=== PATIENT | male | born 1940 | race Caucasian/White ===

== ENCOUNTER 2018-08-30 12:51 | Emergency (ER) | payer SELFPAY ==
[~2018-08-30] VITALS: Wt 100.0 kg
--- NOTE | 2018-08-30 13:14 | ERD ---
ER Documentation Chief Complaint Chief Complaint Facial laceration HPI The patient is a 78-year-old male, presenting to the ER because he had a mechanical fall prior to arrival, sustaining a facial laceration. He is awake, alert, able to answer question, denies syncope, near syncope, neck pain, chest pain, dyspnea, abdominal pain, vomiting, dysuria, diarrhea. He denies smoking or drinking Past medical history: Diabetes mellitus, hypertension, history of CVA, atrial fibrillation, CKD ROS All systems reviewed and are negative except as per history of present illness. Medications Home Meds Reported Medications Febuxostat* (Uloric*) 80 Mg Tablet, 80 MG PO DAILY, TAB 08/30/18 Metolazone* (Metolazone*) 2.5 Mg Tablet, 2.5 MG PO BID, TAB 08/30/18 Bumetanide* (Bumetanide*) 1 Mg Tablet, 3 MG PO Q48H for ON ,,THU,THURSDAY, TAB 08/30/18 Bumetanide* (Bumetanide*) 1 Mg Tablet, 2 MG PO Q48H for ON THU,THU,, TAB 08/30/18 Potassium Chloride* (Klor-Con*) 20 Meq Tabsr, 20 MEQ PO BID for TAKE 1 TO 3 TABLETS DIRECTE, TAB.SA 08/30/18 Magnesium Oxide* (Mag-Oxide*) 400 Mg Tablet, 400 MG PO BID, TAB 08/30/18 Lovastatin (Lovastatin) 40 Mg Tablet, 40 MG PO QHS, #30 TAB 08/30/18 Spironolactone* (Aldactone*) 25 Mg Tablet, 6.25 MG PO DAILY, #60 TAB 08/30/18 Isosorbide Mononitrate* (Isosorbide Mononitrate*) 30 Mg Tab.er.24h, 30 MG PO DAILY, TAB 08/30/18 Carvedilol* (Coreg*) 3.125 Mg Tablet, 3.125 MG PO BID, #60 TAB 08/30/18 Insulin Lispro Protamin/Lispro (Humalog Mix 75-25 Vial) 100 Unit/1 Ml Vial, 36 UNIT SQ QHS, VIAL 08/30/18 Insulin Lispro Protamin/Lispro (Humalog Mix 75-25 Vial) 100 Unit/1 Ml Vial, 40 UNIT SQ ACB A, VIAL 08/30/18 Allergies Allergies: Coded Allergies: No Known Allergy (Unverified , 08/30/18) Physical Exam Vitals Vital Signs Date Temp Pulse Resp B/P (MAP) Pulse Ox O2 O2 Flow FiO2 Time Delivery Rate 08/30/18 97.9 97 18 131/97 100 Room Air 17:41 (108) 08/30/18 97.9 60 20 172/150 100 Room Air 16:01 (157) 08/30/18 97.9 77 20 109/72 100 13:26 (84) Physical Exam Const: No acute distress. Head: Atraumatic. Eyes: Normal Conjunctiva. ENT: Normal External Ears, Nose and Mouth. Forehead 2.6 cm superficial laceration Neck: Full range of motion. No meningismus. Resp: Clear to auscultation bilaterally. Cardio: Irregularly irregular Abd: Soft, non distended, normal bowel sounds, non tender. Skin: No petechiae or rashes. Back: No midline or flank tenderness. Ext: No cyanosis, or edema. Neur: Awake and alert. No focal deficit Psych: Anxious. Result Diagram: 08/30/18 1354 08/30/18 1354 Results 24 hrs Laboratory Tests Test 08/30/18 13:53 08/30/18 13:54 Prothrombin Time 16.4 Sec Prothrombin Time Ratio 1.3 INR International Normalized Ratio 1.31 Activated Partial Thromboplast Time 35.5 Sec White Blood Count 5.2 10^3/ul Red Blood Count 4.19 10^6/ul Hemoglobin 12.0 g/dl Hematocrit 38.5 % Mean Corpuscular Volume 91.9 fl Mean Corpuscular Hemoglobin 28.6 pg Mean Corpuscular Hemoglobin Concent 31.2 g/dl Red Cell Distribution Width 16.3 % Platelet Count 153 10^3/UL Mean Platelet Volume 10.6 fl Immature Granulocytes % 0.600 % Neutrophils % 62.4 % Lymphocytes % 12.4 % Monocytes % 11.8 % Eosinophils % 12.4 % Basophils % 0.4 % Nucleated Red Blood Cells % 0.0 /100WBC Immature Granulocytes # 0.030 10^3/ul Neutrophils # 3.2 10^3/ul Lymphocytes # 0.6 10^3/ul Monocytes # 0.6 10^3/ul Eosinophils # 0.6 10^3/ul Basophils # 0.0 10^3/ul Nucleated Red Blood Cells # 0.0 10^3/ul Sodium Level 136 mmol/L Potassium Level 4.2 mmol/L Chloride Level 94 mmol/L Carbon Dioxide Level 33 mmol/L Anion Gap 9 Blood Urea Nitrogen 105 mg/dl Creatinine 2.47 mg/dl Est Glomerular Filtrat Rate mL/min mL/min Glucose Level 92 mg/dl Calcium Level 9.8 mg/dl Magnesium Level 2.5 mg/dl Current Medications Medications Dose Sig/Wilma Start Time Status Last (Trade) Ordered Route PRN Stop Time Admin Dose Reason Admin Diphtheria/ 0.5 ml ONCE ONCE 08/30/18 DC 08/30/18 Tetanus/Acell IM* 13:30 08/30/18 14:26 Pertussis 13:32 (Adacel) Procedures/[place] [id number] Radiology Main Line: [phone] DIAGNOSTIC IMAGING REPORT Patient: ROSANNE RIVERA : 1940 Age: 78 Sex: M MR #: [id number] DOS: 08/30/18 1329 Ordering MD: SUKHWINDER NORMAN MD Location: E/R Room/Bed: PROCEDURE: CT Brain without contrast. CLINICAL INDICATION: Headache TECHNIQUE: A CT of the brain was performed on a [employer] 64-slice CT scanner utilizing axial imaging from the skull base through the vertex without IV contrast. Multiplanar reformatted images were made. Images were reviewed on a PACS workstation. The CTDIvol is 40.05 mGy and the DLP is 852.94 mGycm. One or more the following dose reduction techniques were utilized: Automated exposure control, adjustment of mA/ or kV according to patient's size, or use of iterative reconstruction technique. DICOM images are available for review. COMPARISON: None FINDINGS: Images demonstrate left frontal periorbital soft tissue swelling however no underline fracture is visualized. There is no intracranial hemorrhage, mass effect, or midline shift. images the brain parenchyma demonstrate areas of encephalomalacia with surrounding hypoattenuation likely representing gliosis involving the left frontal lobe, right parietal occipital and posterior temporal lobes. The rest the ventricles and sulci are prominent is a with generalized volume loss . Patchy hypoattenuation is seen in the periventricular white matter. There is good neely-white matter differentiation throughout the cerebral hemispheres. The visualized brainstem and cerebellum are unremarkable. No extra-axial fluid collection is seen. Extensive vascular calcifications are seen involving the cavernous and supraclinoid ICA segments, basilar artery vertebral arteries. IMPRESSION: There is left frontal and periorbital soft tissue swelling however no acute intracranial abnormality is seen. 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 Intracranial atherosclerosis. RPTAT: [facility] Physician Alonzo Date Time Electronically viewed and signed by Physician Alonzo on 08/30/2018 14:47 RL/ CC: SUKHWINDER NORMAN MD [id number] [place] [id number] Radiology Main Line: [phone] DIAGNOSTIC IMAGING REPORT Patient: ROSANNE RIVERA : 1940 Age: 78 Sex: M MR #: [id number] DOS: 08/30/18 1329 Ordering MD: SUKHWINDER NORMAN MD Location: E/R Room/Bed: PROCEDURE: CT Cervical Spine without contrast. CLINICAL INDICATION: Status post fall TECHNIQUE: A CT of the cervical spine was performed on a [employer] VCT 64- slice CT scanner utilizing thin section axial images from the skull base through the thoracic inlet. Sagittal and coronal reformatted images were made. The CTDIvol is 22.19 mGy and the DLP is 478 5.56 mGycm. One or more the following dose reduction techniques were utilized: Automated exposure control, adjustment of the mA/ or kV according to patient's size, or use of iterative reconstruction technique. DICOM images are available for review. COMPARISON: No prior studies are available for comparison. FINDINGS: Images of the cervical spine demonstrate there is a levoscoliosis centered at C 6-7. There is an anterolisthesis of C5 on C6 which measures approximate 2 mm. Vertebral body heights are uniform. No fracture is evident. C2-3: There is posterior disc height loss. There is a broad-based 3 mm disc osteophyte complex with ligamentum redundancy which results in flattening of the cord and a moderate central canal stenosis. There is at least mild bilateral neural foraminal narrowing. C3-4: The disc is normal in height. There is a 3 mm disc osteophyte complex with bilateral facet arthropathy. This results in mild central canal narrowing with at least moderate right and mild left neural foraminal narrowing. C4-5: The disc is normal in height. There is a left disc osteophyte complex with bilateral facet arthropathy. Central canal is patent however there is severe left and least moderate right neural foraminal narrowing. C5-6: There is a diffuse disc height loss with a 2-3 mm disc osteophyte complex with bilateral facet arthropathy. The central canal is patent. There is severe right neural foraminal narrowing. C6-7: There is severe degenerative disc disease. There is a II through millimeter disc osteophyte complex with bilateral facet arthropathy. This r esults in a least and mild to moderate central canal stenosis with moderate bilateral neural foraminal narrowing. C7-T1: There is moderate disc height loss with a diffuse disc osteophyte complex with bilateral facet arthropathy. The central canal is patent however this results in at least moderate right mild left neural foraminal narrowing. IMPRESSION: CT cervical spine demonstrates no evidence of acute injury. Multilevel degenerative changes are present resulting in moderate central canal narrowing at the C2-3 level with mild central canal narrowing at C3-4. There is bilateral neural foraminal narrowing moderate at the left C3-4 level. Facet arthropathy and disc osteophyte complexes results in multilevel neural foraminal narrowing throughout the rest of the cervical spine, severe at the left C4-5, right C5-6 levels. RPTAT: [facility] Physician Alonzo Date Time Electronically viewed and signed by Physician Alonzo on 08/30/2018 15:01 RL/ CC: SUKHWINDER NORMAN MD [id number] [facility] [id number] [place] [address] Radiology Main Line: [phone] DIAGNOSTIC IMAGING REPORT Patient: ROSANNE RIVERA : 1940 Age: 78 Sex: M MR #: [id number] DOS: 08/30/18 1329 Ordering MD: SUKHWINDER NORMAN MD Location: E/R Room/Bed: PROCEDURE: CT facial bones CLINICAL INDICATION: Status post injury TECHNIQUE: A CT of the facial bones was performed on a [employer] 64-slice CT scanner utilizing high-resolution axial images. Sagittal, coronal, and multiplanar reformatted images were made. Additionally, 3-D reformatted images were made. The CTDIvol is 29.38 mGy and the DLP is 591.05 mGycm. One or more the following dose reduction techniques were utilized: Automated exposure control, adjustment of the mA/ or kV according to patient's size, or use of iterative reconstruction technique. DICOM images are available for review. COMPARISON: None. FINDINGS: Images of the soft tissues demonstrate left frontal, periorbital and facial soft tissue swelling. No underline fracture is visualized. The orbits, as visualized, appear intact. the rest the soft tissues are unremarkable in appearance. The visualized nasopharynx, oropharynx and hypopharynx are unremarkable. The mandible is intact. Visualized paranasal sinuses demonstrate polypoid bilateral maxillary mucosal thickening with mild bilateral inferior frontal and ethmoid mucosal thickening. Incidental note is also made of lucency surrounding the third tooth which measure up to 4 mm IMPRESSION: CT of the face demonstrates left frontal, periorbital and facial soft tissue swelling without underlying fracture. Patchy paranasal sinus disease involving the bilateral maxillary anterior ethmoid and frontal sinuses. RPTAT: [facility] Physician Alonzo Date Time Electronically viewed and signed by Physician Alonzo on 08/30/2018 14:52 RL/ CC: SUKHWINDER NORMAN MD [id number] EKG: Read by emergency physician Rate/Rhythm: Atrial fibrillation 82 beats per min QRS, ST, T-waves: No ST elevation, no T wave inversion, RBBB, inferior Q's, PVC Impression: Abnormal EKG Laceration Repair by me: Anesthesia: 1% lidocaine locally Location: Left forehead Tendon/Joint/Nerves: No injury Foreign body: None detected after copious irrigation and exploration Technique: Simple Interrupted Sutures Complexity: No subcutaneous sutures/mucosal repair/edge excision Post Closure Length: 2.6 cm Patient's bleeding was easily controlled in the department and there is no indication of anemia. No evidence of compartment syndrome, neurologic injury, vascular injury, open joint, tendon laceration, or foreign body. Patient is appropriate for outpatient follow up. 48 hour wound check. Scar minimization instructions given. MEDICAL MAKING DECISION: The patient is a 78-year-old male, presenting with acute facial laceration. She was treated with Tdap IM The differential diagnoses considered include but are not limited to subarachnoid hemorrhage, occult trauma, CVA, meningitis, encephalitis, hypertension, tension, migraine, cluster, narcotic withdrawal, cervical spine disease. Consultation: I discussed the patient with his physician Dr Tabares, who stated the his baseline creatinine is 2.5 and she agree to follow him up tomorrow Departure Diagnosis: Primary Impression: Facial laceration Additional Impressions: Anemia CKD (chronic kidney disease) Condition: Good Comments I discussed the findings with the patient. I advised the patient to follow-up with the primary physician in the morning and return if any concern. Disclaimer: Inadvertent spelling and grammatical errors are likely due to EHR/dictation software use and do not reflect on the overall quality of patient care. Also, please note that the electronic time recorded on this note does not necessarily reflect the actual time of the patient encounter. SUKHWINDER NORMAN MD Aug 30, 2018 13:14
[2018-08-30] MEDS ORDERED: DIPHTH/TET/ACEL PERTUSS (ADULT) 0.5 ML VIAL IM* ONE (13:30)
[2018-08-30] MEDS ORDERED: ISOS30TA67 PO (14:02)
[2018-08-30] MEDS ORDERED: INSU100V27 SQ ×2 (14:02)
[2018-08-30] MEDS ORDERED: SPIR25TA PO (14:02)
[2018-08-30] MEDS ORDERED: CARV3.12 PO (14:02)
[2018-08-30] MEDS ORDERED: LOVA40TA PO (14:03)
[2018-08-30] MEDS ORDERED: POTA-57 PO (14:03)
[2018-08-30] MEDS ORDERED: MAGN400T27 PO (14:03)
[2018-08-30] MEDS ORDERED: FEBU80TA PO (14:06)
[2018-08-30] MEDS ORDERED: METO2.5T PO (14:06)
[2018-08-30] MEDS ORDERED: BUME1TAB PO (14:06)
[2018-08-30 17:41] VITALS: BP 131/97; PULSE 97; RESP 18
== END 2018-08-30 18:05 | disposition home or self-care (01) ==
LOC: E/R 12:51
DX: S01.81XA Laceration without foreign body of other part of head, initial encounter (principal); D64.9 Anemia, unspecified; I12.9 Hypertensive chronic kidney disease with stage 1 through stage 4 chronic kidney disease, or unspecified chronic kidney disease; N18.9 Chronic kidney disease, unspecified; E11.22 Type 2 diabetes mellitus with diabetic chronic kidney disease; W18.30XA Fall on same level, unspecified, initial encounter; Y92.9 Unspecified place or not applicable; Z23 Encounter for immunization; Z86.73 Personal history of transient ischemic attack (TIA), and cerebral infarction without residual deficits; Z79.4 Long term (current) use of insulin
CPT/HCPCS: 36415; 70450; 70486; 72125; 80048; 83735; 85025; 85610; 85730; 90471; 93005